=== PATIENT | female | born 1995 | race Caucasian/White ===

== ENCOUNTER 2023-03-26 18:59 | Emergency (ER) | payer OTHER ==
--- NOTE | 2023-03-26 19:05 | ERPHSYRPT ---
- History of Present Illness Time Seen by Provider: 03/26/23 19:04 Source: patient, family Exam Limitations: no limitations Physician History: This is an overweight 27-year-old white female patient who was brought to the emergency department by family vehicle because she had passed out and then hit her head on the toilet and now complains of headache. She lost consciousness for approximately 5 seconds per a witness. There was no seizure activity. Patient states that she has had a history of seizures in the distant past but is currently not on any antiseizure medication. Patient denies chest pain. Patient denies shortness of breath. Patient states that throughout the day today she was nauseated. She felt tingly all over just before she passed out. Patient does have a history of hypothyroidism. Occurred: just prior to arrival Severity: mild Head Injury Location: occipital Method of Injury: fell Loss of Consciousness: brief (seconds) Associated Symptoms: nausea, No seizure Allergies/Adverse Reactions: amoxicillin [From Augmentin] Allergy (Severe, Verified 03/26/23 19:13) Tightness of Throat azithromycin [From Zithromax] Allergy (Severe, Verified 03/26/23 19:13) Tightness of Throat clavulanic acid [From Augmentin] Allergy (Severe, Verified 03/26/23 19:13) Tightness of Throat Home Medications: Levothyroxine Sodium [Tirosint] 250 mcg PO DAILY 03/26/23 [History] Travel Risk - International Travel Have you traveled outside of the country in past 3 weeks: No - Coronavirus Screening Are you exhibiting any of the following symptoms?: No Close contact with a COVID-19 positive Pt in past 14-21 Days: No - Review of Systems Constitutional: No Symptoms Eyes: No Symptoms Ears, Nose, & Throat: No Symptoms Respiratory: No Symptoms Cardiac: No Symptoms Abdominal/Gastrointestinal: No Symptoms Genitourinary Symptoms: No Symptoms Musculoskeletal: No Symptoms Skin: No Symptoms Neurological: Headache Psychological: No Symptoms Endocrine: No Symptoms Hematologic/Lymphatic: No Symptoms Immunological/Allergic: No Symptoms All Other Systems: Reviewed and Negative - Past Medical History Pertinent Past Medical History: Yes - Past Surgical History Past Surgical History: Yes - Nursing Vital Signs Nursing Vital Signs: Initial Vital Signs Temperature 98.4 F 03/26/23 19:11 Pulse Rate 104 H 03/26/23 19:11 Respiratory Rate 22 05/01/23 19:11 Blood Pressure 114/90 05/01/23 19:11 O2 Sat by Pulse Oximetry 98 03/26/23 19:11 Pain Scale Pain Intensity 3 - Enmanuel Coma Score Best Eye Response ([place]): (4) open spontaneously Best Verbal Response ([place]): (5) oriented Best Motor Response ([place]): (6) obeys commands [place] Total: 15 - Physical Exam General Appearance: no apparent distress, alert, anxiety Head Injury: no evidence of injury, tenderness, No lacerations Eye Exam: bilateral eye: normal inspection, PERRL, EOMI ENT Exam: airway nml, nml ext.inspection, No evidence of ENT injury, No dental injury Neck Exam: supple, trachea midline, full range of motion, normal alignment, normal inspection Cardiovascular/Respiratory Exam: chest non-tender, no respiratory distress Gastrointestinal/Abdominal Exam: soft, non tender, no distention, no mass, no guarding, no ecchymosis, no organomegaly, no pulsatile mass, normal bowel sounds Pelvic Exam: not done Rectal Exam: not done Back Exam: normal inspection, normal range of motion, No CVA tenderness, No vertebral tenderness Extremity Exam: non-tender, normal range of motion, normal inspection, normal capillary refill, no calf tenderness, no pedal edema, pelvis stable Mental Status Exam: alert, oriented x 3, 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 Exam: normal hearing, normal speech, PERRL Coordination/Gait Exam: normal finger to nose, normal gait, normal cerebellar function Skin Exam: normal color, warm, dry Lymphatic Exam: adenopathy SpO2 Interpretation: normal O2 Delivery: Room Air - Course Nursing assessment & vital signs reviewed: Yes Ordered Tests: Active Orders 24 hr Category Date Time Status Clean Catch Urine Specimen STAT Care 03/26/23 19:24 Active EKG-ER Only STAT Care 03/26/23 19:24 Active IV Insertion STAT Care 03/26/23 19:24 Active HEAD WITHOUT CONTRAST [CT] Stat Exams 03/26/23 19:25 Taken CBC W DIFF Stat Lab 03/26/23 19:50 Completed CMP Stat Lab 03/26/23 19:50 Completed CULTURE,URINE Stat Lab 03/26/23 20:54 Received ETHYL ALCOHOL Stat Lab 03/26/23 19:50 Completed HCG QUALITATIVE, SERUM Stat Lab 03/26/23 19:50 Completed T4 (Thyroxine) Stat Lab 03/26/23 19:50 Completed TSH, 3RD Generation Stat Lab 03/26/23 19:50 Completed UA W/RFX UR CULTURE Stat Lab 03/26/23 20:54 Completed Urine Triage Profile Stat Lab 03/26/23 20:55 Completed Medication Summary Discontinued Medications Generic Name Dose Route Start Last Admin Trade Name [place] PRN Reason Stop Dose Admin Sodium Chloride 1,000 mls @ 999 mls/hr 03/26/23 19:24 03/26/23 21:39 Sodium Chloride 0.9% 1000 Ml IV 03/26/23 20:24 Infused .Q1H1M STA Infusion Sodium Chloride Confirm 03/26/23 19:53 Sodium Chloride 0.9% 1000 Ml Administered 03/26/23 19:54 Dose 1,000 mls @ ud .ROUTE .[employer] ONE Levofloxacin 500 mg 03/26/23 22:30 Levofloxacin 500 Mg Tablet PO 03/26/23 22:31 STAT ONE Ondansetron HCl 4 mg 03/26/23 19:26 03/26/23 19:54 Ondansetron Hcl 4 Mg/2 Ml Vial IV 03/26/23 19:27 4 mg STAT ONE Administration Ondansetron HCl Confirm 03/26/23 19:53 Ondansetron Hcl 4 Mg/2 Ml Vial Administered 03/26/23 19:54 Dose 4 mg .ROUTE .[employer] ONE Lab/Rad Data: Laboratory Result Diagrams 03/26/23 19:50 03/26/23 19:50 Laboratory Results 03/26/23 03/26/23 03/26/23 Range/Units 20:55 20:54 19:50 WBC (4.0-10.5) x10^3/uL RBC (4.1-5.4) x10^6/uL Hgb (12.0-16.0) g/dL Hct (35-47) % MCV (78-100) fL MCH (26-32) pg MCHC (32-36) g/dL RDW (11.5-14.0) % Plt Count (150-450) x10^3/uL MPV (7.5-11.0) fL Gran % (36.0-66.0) % Immature Gran % (Auto) (0.00-0.4) % Nucleat RBC Rel Count (0.00-0.1) % Eos # (Auto) (0-0.5) x10^3/uL Immature Gran # (Auto) (0.00-0.03) x10^3u/L Absolute Lymphs (auto) (1.0-4.6) x10^3/uL Absolute Monos (auto) (0.0-1.3) x10^3/uL Absolute Nucleated RBC (0.00-0.01) x10^3u/L Lymphocytes % (24.0-44.0) % Monocytes % (0.0-12.0) % Eosinophils % (0.00-5.0) % Basophils % (0.0-0.4) % Absolute Granulocytes (1.4-6.9) x10^3/uL Basophils # (0-0.4) x10^3/uL Sodium (137-145) mmol/L Potassium (3.5-5.1) mmol/L Chloride (98-107) mmol/L Carbon Dioxide (22-30) mmol/L Anion Gap (5-15) MEQ/L BUN (7-17) mg/dL Creatinine (0.52-1.04) mg/dL Estimated GFR ML/MIN Glucose (74-106) mg/dL Calcium (8.4-10.2) mg/dL Total Bilirubin (0.2-1.3) mg/dL AST (14-36) U/L ALT (0-35) U/L Alkaline Phosphatase (38-126) U/L Serum Total Protein (6.3-8.2) g/dL Albumin (3.5-5.0) g/dL Thyroxine (T4) (5.53-10.96) ug/dL TSH 3rd Generation (0.47-4.68) mIU/L Serum HCG, Qual NEGATIVE (NEGATIVE) Urine Color Yellow (Yellow) Urine Appearance Cloudy A (Clear) Urine pH 5.5 (4.6-8.0) Ur Specific [place] >=1.030 A (1.005-1.030) Urine Protein Trace A (Negative) Urine Glucose (UA) Negative (Negative) mg/dL Urine Ketones Trace A (Negative) Urine Blood Negative (Negative) Urine Nitrite Positive A (Negative) Urine Bilirubin Negative (Negative) Urine Urobilinogen 1.0 A (0.2) mg/dL Ur Leukocyte Esterase Small A (Negative) U Hyaline Cast (Auto) 3-5 A (0-2) /LPF Urine Microscopic RBC 0-2 (0-5) /HPF Urine Microscopic WBC 21-50 A (0-5) /HPF Ur Epithelial Cells Moderate A (None Seen) /HPF Urine Bacteria Many A (None Seen) /HPF Urine Yeast (Budding) (None Seen) /HPF Urine Culture Reflexed YES (NO) Urine Opiates Level NEGATIVE (NEGATIVE) Ur Methadone NEGATIVE (NEGATIVE) Urine Barbiturates NEGATIVE (NEGATIVE) Ur Phencyclidine (PCP) NEGATIVE (NEGATIVE) Urine Amphetamine NEGATIVE (NEGATIVE) U Benzodiazepine Level NEGATIVE (NEGATIVE) Urine Cocaine NEGATIVE (NEGATIVE) Urine Marijuana (THC) POSITIVE (NEGATIVE) Ethyl Alcohol (0-10) mg/dL 03/26/23 03/26/23 Range/Units 19:50 19:50 WBC 9.0 (4.0-10.5) x10^3/uL RBC 4.83 (4.1-5.4) x10^6/uL Hgb 14.3 (12.0-16.0) g/dL Hct 43.8 (35-47) % MCV 90.7 (78-100) fL MCH 29.6 (26-32) pg MCHC 32.6 (32-36) g/dL RDW 13.0 (11.5-14.0) % Plt Count 309 (150-450) x10^3/uL MPV 9.8 (7.5-11.0) fL Gran % 60.1 (36.0-66.0) % Immature Gran % (Auto) 0.3 (0.00-0.4) % Nucleat RBC Rel Count 0.0 (0.00-0.1) % Eos # (Auto) 0.06 (0-0.5) x10^3/uL Immature Gran # (Auto) 0.03 (0.00-0.03) x10^3u/L Absolute Lymphs (auto) 2.72 (1.0-4.6) x10^3/uL Absolute Monos (auto) 0.73 (0.0-1.3) x10^3/uL Absolute Nucleated RBC 0.00 (0.00-0.01) x10^3u/L Lymphocytes % 30.1 (24.0-44.0) % Monocytes % 8.1 (0.0-12.0) % Eosinophils % 0.7 (0.00-5.0) % Basophils % 0.7 (0.0-0.4) % Absolute Granulocytes 5.44 (1.4-6.9) x10^3/uL Basophils # 0.06 (0-0.4) x10^3/uL Sodium 141 (137-145) mmol/L Potassium 3.8 (3.5-5.1) mmol/L Chloride 104 (98-107) mmol/L Carbon Dioxide 28 (22-30) mmol/L Anion Gap 12.8 (5-15) MEQ/L BUN 15 (7-17) mg/dL Creatinine 1.12 H (0.52-1.04) mg/dL Estimated GFR > 60.0 ML/MIN Glucose 104 (74-106) mg/dL Calcium 8.2 L (8.4-10.2) mg/dL Total Bilirubin 0.50 (0.2-1.3) mg/dL AST 22 (14-36) U/L ALT 18 (0-35) U/L Alkaline Phosphatase 47 (38-126) U/L Serum Total Protein 6.3 (6.3-8.2) g/dL Albumin 3.7 (3.5-5.0) g/dL Thyroxine (T4) 7.76 (5.53-10.96) ug/dL TSH 3rd Generation 10.100 H (0.47-4.68) mIU/L Serum HCG, Qual (NEGATIVE) Urine Color (Yellow) Urine Appearance (Clear) Urine pH (4.6-8.0) Ur Specific [place] (1.005-1.030) Urine Protein (Negative) Urine Glucose (UA) (Negative) mg/dL Urine Ketones (Negative) Urine Blood (Negative) Urine Nitrite (Negative) Urine Bilirubin (Negative) Urine Urobilinogen (0.2) mg/dL Ur Leukocyte Esterase (Negative) U Hyaline Cast (Auto) (0-2) /LPF Urine Microscopic RBC (0-5) /HPF Urine Microscopic WBC (0-5) /HPF Ur Epithelial Cells (None Seen) /HPF Urine Bacteria (None Seen) /HPF Urine Yeast (Budding) (None Seen) /HPF Urine Culture Reflexed (NO) Urine Opiates Level (NEGATIVE) Ur Methadone (NEGATIVE) Urine Barbiturates (NEGATIVE) Ur Phencyclidine (PCP) (NEGATIVE) Urine Amphetamine (NEGATIVE) U Benzodiazepine Level (NEGATIVE) Urine Cocaine (NEGATIVE) Urine Marijuana (THC) (NEGATIVE) Ethyl Alcohol < 10 (0-10) mg/dL - Progress Progress: improved Progress Note: 03/26/23 22:34 CT scan of the head without contrast is negative for any acute intracranial abnormality. This patient's medical issue is 1 of moderate complexity. The level of complexity and the work-up performed was based on review of the patient's past medical history, review of the patient's medication list, review of the patient's drug allergy list, history of present illness and physical findings on examination. The work-up performed includes CT scan of the head without contrast, placement of an intravenous line, infusion of saline solution, CMP, CBC, urinalysis, twelve-lead EKG and T4/TSH levels. The patient has mild hypothyroidism as well as a urinary tract infection. We provided the patient here with Levaquin 500 mg orally p.o. x1. Patient is to follow-up with her primary care/prescribing provider tomorrow, 03/27/2023 for further evaluation and management of her hypothyroidism. Counseled pt/family regarding: lab results, diagnosis, need for follow-up, rad results Medical Desision Making - Discussion of managment Agreed on:: Treatment plan, need for follow-up - Diagnostic Testing Diagnostic test were ordered, analyzed, and reviewed by me: Yes Radiological Interpretation: Reviewed by me, Teleradiologist Report - Risk of complications The pt has a mod risk of morbidity or mortality based on: Need for prescription drug management - Departure Departure Disposition: Home Clinical Impression: Hypothyroidism, UTI (urinary tract infection) Condition: Stable Critical Care Time: No Additional Instructions: Drink plenty of clear liquids. Take your medication as prescribed. Call your primary care physician tomorrow, 03/27/2023, to make arranges for follow-up appointment the next 3 days. At that time discussed with them management of your thyroid issue. Prescriptions: Ciprofloxacin [Cipro 500 MG] 500 mg PO BID #14 tablet
[2023-03-26] MEDS ORDERED: Sodium Chloride 0.9% 1000 ML 1,000 ML IV STA (19:24)
[2023-03-26] MEDS ORDERED: Zofran 4 MG/2 ML VIAL IV ONE (19:26)
[2023-03-26] MEDS ORDERED: Sodium Chloride 0.9% 1000 ML 1,000 ML ONE (19:53)
[2023-03-26] MEDS ORDERED: Zofran 4 MG/2 ML VIAL ONE (19:53)
[2023-03-26 19:58] LABS: Absolute Neutrophil Ct (ANC) 5.44 x10^3/uL (1.4-6.9); BASOPHIL % 0.7 % (0.0-0.4); Basophil (Absolute #) 0.06 x10^3/uL (0-0.4); Eosinophil % 0.7 % (0.00-5.0); Eosinophil (Absolute #) 0.06 x10^3/uL (0-0.5); Hematocrit 43.8 % (35-47); Hemoglobin 14.3 g/dL (12.0-16.0); IMMATURE GRAN # 0.03 x10^3u/L (0.00-0.03); IMMATURE GRAN % 0.3 % (0.00-0.4); Lymphocyte (Absolute #) 2.72 x10^3/uL (1.0-4.6); Lymphocytes % 30.1 % (24.0-44.0); Mean Cell Volume 90.7 fL (78-100); Mean Corpuscular Hemoglobin 29.6 pg (26-32); Mean Corpuscular Hgb Concent. 32.6 g/dL (32-36); Mean Platelet Volume 9.8 fL (7.5-11.0); Monocyte (Absolute #) 0.73 x10^3/uL (0.0-1.3); Monocytes % 8.1 % (0.0-12.0); Neutrophil % 60.1 % (36.0-66.0); Platelet Count 309 x10^3/uL (150-450); Red Blood Count 4.83 x10^6/uL (4.1-5.4)
[2023-03-26 20:17] LABS: HCG SERUM TEST NEGATIVE (NEGATIVE)
[2023-03-26 20:47] LABS: ALBUMIN 3.7 g/dL (3.5-5.0); ALKALINE PHOSPHATASE 47 U/L (38-126); ANION GAP 12.8 MEQ/L (5-15); BLOOD UREA NITROGEN 15 mg/dL (7-17); CHLORIDE 104 mmol/L (98-107); Calcium 8.2 mg/dL (8.4-10.2); Carbon Dioxide 28 mmol/L (22-30); Creatinine 1 1.12 mg/dL (0.52-1.04); EST GLOMERULAR FILTRATION RATE > 60.0 ML/MIN; ETHYL ALCOHOL < 10 mg/dL (0-10); Glucose 104 mg/dL (74-106); Potassium 3.8 mmol/L (3.5-5.1); SGOT/AST 22 U/L (14-36); SGPT/ALT 18 U/L (0-35); SODIUM 141 mmol/L (137-145); T4 (Thyroxine) 7.76 ug/dL (5.53-10.96); Total Protein 6.3 g/dL (6.3-8.2)
[2023-03-26 21:51] LABS: Amphetamine,Urine NEGATIVE (NEGATIVE); Barbiturate,Urine NEGATIVE (NEGATIVE); Benzodiazepine,Urine NEGATIVE (NEGATIVE); Cocaine,Urine NEGATIVE (NEGATIVE); Methadone,Urine NEGATIVE (NEGATIVE); Opiate,Urine NEGATIVE (NEGATIVE); PCP,Urine NEGATIVE (NEGATIVE); THC,Urine POSITIVE (NEGATIVE)
[2023-03-26 22:11] VITALS: BP 124/70; PULSE 86; O2SAT 95
[2023-03-26 22:13] LABS: Appearance Cloudy (Clear); Bacteria Many /HPF (None Seen); Bilirubin Negative (Negative); Blood Negative (Negative); Epithelial Cells Moderate /HPF (None Seen); Glucose, Urine Negative (Negative); Ketones Trace (Negative); Leukocyte Esterase Small (Negative); Nitrite Positive (Negative); Ph 5.5 (4.6-8.0); Protein,Urine Dip Trace (Negative); RBC 0-2 /HPF (0-5); Specific Gravity >=1.030 (1.005-1.030); WBC 21-50 /HPF (0-5)
[2023-03-26 22:17] LABS: ADD URINE CULTURE? YES (NO)
[2023-03-26] MEDS ORDERED: Levofloxacin 500 MG Tablet PO ONE (22:30)
[2023-03-26] MEDS ORDERED: Levofloxacin 500 MG Tablet ONE (22:32)
[2023-03-26] MEDS ORDERED: NORCO 5/325 MG PO ONE (22:33)
[2023-03-26] MEDS ORDERED: NORCO 5/325 MG ONE (22:36)
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
== END 2023-03-26 22:58 | disposition home or self-care (01) ==
LOC: ED 18:59
DX: N39.0 Urinary tract infection, site not specified (principal); E03.9 Hypothyroidism, unspecified; R51.9 Headache, unspecified; R55 Syncope and collapse; R11.0 Nausea; Z79.899 Other long term (current) drug therapy
CPT/HCPCS: 36415; 70450; 80053; 80307; 81001; 82077; 84436; 84443; 84703; 85025; 87077; 87086; 87186; 93005; 96374; 99284; J2405; A9270-GY

== ENCOUNTER 2023-04-12 19:54 | Emergency (ER) | payer OTHER ==
[2023-04-12 21:13] VITALS: BP 111/66; PULSE 94; O2SAT 96
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
== END 2023-04-12 21:49 | disposition home or self-care (01) ==
LOC: ED 19:54
DX: S63.501A Unspecified sprain of right wrist, initial encounter (principal); V87.7XXA Person injured in collision between other specified motor vehicles (traffic), initial encounter; M25.531 Pain in right wrist; Z79.899 Other long term (current) drug therapy
CPT/HCPCS: 73110; 99283; L3908